=== PATIENT | male | born 1970 | race Two or more races ===

== ENCOUNTER → 2024-09-19 | Outpatient (CLI) | payer MEDICAID, SELFPAY ==
--- NOTE | 2024-09-19 | XR_ITS ---
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 FINDINGS: Total right hip arthroplasty with satisfactory alignment No loosening of the prosthetic components Advanced left hip osteoarthritis IMPRESSION: Total right hip arthroplasty with satisfactory alignment.
== END | disposition home or self-care (01) ==
LOC: CDIM 09:48
PROVIDERS: PCP Physician Assistant; Referring Provider Orthopaedic Surgery; Visit Provider Orthopaedic Surgery
DX: Z96.641 Presence of right artificial hip joint (principal)
CPT/HCPCS: 73502

== ENCOUNTER → 2025-03-12 | Outpatient (CLI) | payer MEDICAID, SELFPAY ==
--- NOTE | 2025-03-12 10:00 | XR_ITS ---
Examination: Transrectal prostate sonography TECHNIQUE: Grayscale transrectal sonographic images prostate Date and time: March 12, 2025, 0955 hours INDICATIONS: Loss of bladder control beginning 7 months ago, transrectal prostate sonography August 12, 2022 prostate volume 33 cc no prostate nodules FINDINGS: Prostate 4.6 x 3.5 x 5.5 cm volume 46 cc No prostate nodules IMPRESSION: Prostatomegaly, no prostate nodules
== END | disposition home or self-care (01) ==
PROVIDERS: PCP Physician Assistant; Referring Provider Physician Assistant; Visit Provider Physician Assistant
DX: N40.1 Benign prostatic hyperplasia with lower urinary tract symptoms (principal)
CPT/HCPCS: 76872

== ENCOUNTER 2025-05-17 08:00 | Day surgery (SDC) | payer MEDICAID, SELFPAY ==
--- NOTE | 2025-05-15 10:29 | EKG_ITS ---
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
[2025-05-15 12:16] VITALS: BMI 34.2
[2025-05-15 13:34] LABS: Basophils # (Auto) 0.0 Thou/mm3 (0.0-0.2); Basophils % (Auto) 0 % (0-2.5); Eosinophils # (Auto) 0.1 Thou/mm3 (0.0-0.5); Eosinophils % (Auto) 1 % (0-10); Hematocrit 46.1 % (41.0-53.0); Hemoglobin 15.6 g/dL (13.5-16.0); Immature Granulocytes Auto 0.02 Thou/mm3 (0.00-0.00); Lymphocytes # (Auto) 1.7 Thou/mm3 (1.0-4.8); Lymphocytes % (Auto) 21 % (10-50); Mean Corpuscular HGB Conc 33.8 g/dl (31.0-37.0); Mean Corpuscular Hemoglobin 31.1 pg (25.0-35.0); Mean Corpuscular Volume 92 fL (80-100); Monocytes # (Auto) 0.6 Thou/mm3 (0.0-0.8); Monocytes % (Auto) 8 % (0-12); Neutrophils # (Auto) 5.6 Thou/mm3 (1.8-7.7); Neutrophils % (Auto) 70 % (37-80); Nucleated Red Blood Cell # 0.00 Thou/mm3 (0.00-0.00); Nucleated Red Blood Cell % 0 /100 WBC (0); Platelet Count 181 Thou/mm3 (140-440); RDW Standard Deviation 43.0 fL (35.1-43.9); Red Blood Count 5.02 Miln/mm3 (4.50-5.90); White Blood Count 8.1 Thou/mm3 (3.8-10.6)
[2025-05-15 13:47] LABS: Alanine Aminotransferase 12 U/L (10-49); Albumin, Serum 4.7 gm/dL (3.5-5.0); Albumin/Globulin Ratio 1.7 (1.2-2.2); Alkaline Phosphatase 60 U/L (46-116); Anion Gap 8 (7-16); Aspartate Amino Transferase 14 U/L (0-34); BUN/Creatinine Ratio 19 Ratio (12-20); Bilirubin,Total 0.8 mg/dL (0.3-1.2); Blood Urea Nitrogen 21 mg/dL (9-23); Calcium 10.0 mg/dL (8.3-10.6); Calcium (Corrected) 10.0 mg/dL (8.5-10.1); Carbon Dioxide 31.1 mMol/L (20.0-31.0); Chloride 108 mMol/L (98-107); Creatinine (Component) 1.1 mg/dL (0.6-1.3); Estimated Creatinine Clearance 89.9 mL/min (>60); Globulin 2.7 gm/dL (2.3-3.5); Glucose 105 mg/dL (74-106); Osmolality,Calculated 295 (275-295); Potassium 4.1 mMol/L (3.4-5.1); Sodium 147 mMol/L (136-145); Total Protein 7.4 gm/dL (5.7-8.2); eGFR > 60 See Note
[2025-05-17] VITALS (10 sets, daily range): BP systolic 94–116; BP diastolic 54–69; PULSE 52–68; RESP 12–19; TEMP 36.2–36.6; O2SAT 94–100; BMI 33.4
[2025-05-17] MEDS: RINGERS LACTATED 1000 ML 1,000 ML 20 ML IV (08:47)
--- NOTE | 2025-05-17 11:21 | SUR.PHASEI ---
1121 Patient arrived to recovery resting comfortably in [facility], drowsy and able to arouse with verbal prompting, on oxygen 6L via oxy mask, breathing unlabored, vital signs stable, denies pain and nausea, dressing intact to upper groin, dermabond, gauze, medipore tape, no bleeding noted, report received from Janell PATEL and Nieves DIOR
--- NOTE | 2025-05-17 11:24 | ESOP_ITS ---
Date of Procedure 05/17/25 Pre Op Diagnosis Bilateral inguinal hernia Post Op Diagnosis Bilateral direct inguinal hernias Procedure Repair of bilateral inguinal hernias with mesh Findings Bilateral direct inguinal hernias Procedure Description Patient brought into the operating room in supine position. After administration of general endotracheal anesthesia, patient's bilateral groins were shaved, prepped and draped in standard surgical manner. The procedure started on the patient's right side. The right inguinal crease was anesthetized with half percent Marcaine. An approximately 8 cm incision was made and dissection was carried to subcutaneous tissue. The Muriel's fascia was divided and the external oblique aponeurosis was opened towards the external ring. The hernia sac and the spermatic cord structures were from the posterior aspect of the external oblique aponeurosis at the level of pubic tubercle. The hernia sac was then meticulously dissected off the spermatic cord structures at the level of internal ring. Patient was noted to have direct right inguinal hernia defect. The defect was closed with interrupted [id number] sutures using 0 Vicryl. The floor of inguinal canal was then reconstructed with ultra Pro proceed mesh. The mesh was secured with running 2-0 Prolene suture. The mesh secured medially to the pubic tubercle, superiorly into the conjoin tendon, inferiorly and to the shelving edge of inguinal ligament, the mesh was placed around the cord structures and tacked under the external oblique aponeurosis laterally. The area was copiously and thoroughly washed and irrigated, all the fluids were suctioned and the suction fluid returned clear. Hemostasis was adequate and satisfactory. External oblique aponeurosis was closed with running 2-0 Vicryl suture, and Muriel's fascia was closed with interrupted suture using 3-0 Vicryl. The incision was closed with 4-0 Monocryl in subcutaneous fashion. Dermabond and pressure sterile dressings applied. I then turned my attention to patient's left side. He was noted to have direct left inguinal hernia defect and the procedure was performed in exactly similar fashion. Instruments, needles and sponge counts were reported to be correct ?2. Patient tolerated the procedure well. He was extubated, breathing spontaneously and without difficulty and was transferred to postanesthesia care in stable condition. Anesthesia GETA and local Pathology / specimen None Estimated Blood Loss 20 Condition Stable Disposition PACU Surgeon Chau Najera MD Surgical Staff Operation Date: 05/17/25 10:15 Case Staff INFORMATION SECURITY ANALYST: Janell Ferguson RN First Assistant: Nirmala Humphries
--- NOTE | 2025-05-17 11:49 | SUR.PHASEI ---
pt awake, alert, able to follow commands, breathing unlabored, VS stable, dressing to lower abdomen clean, dry, and intact, pt tolerating ice chips without difficulty swallowing or n/v
[2025-05-17] MEDS: fentaNYL CIT INJ 50 mCg/ML AMP 2ML IVP (12:07)
--- NOTE | 2025-05-17 12:26 | SUR.PHASEII ---
pt awake, alert, able to follow commands, breathing unlabored, dressing to lower abdomen clean, dry, and intact, report to Sylwia Kincaid RN
--- NOTE | 2025-05-17 13:18 | SUR.PHASEII ---
1318 Patient meets discharge criteria from recovery, awake and alert, breathing unlabored, vital signs stable, per patient his pain is tolerable, dressing intact; no bleeding noted, patient voided in the restroom prior to discharge, assisted with dressing into his clothing by his , discharge instructions given to patient and patients , signed discharge instructions. Patient given all his belongings prior to discharge, transported via wheelchair and left in a private vehicle.
== END 2025-05-17 13:18 | disposition home or self-care (01) ==
PROVIDERS: Anesthesiology; PCP Physician Assistant; Referring Provider Surgery; Visit Provider Surgery
PROC: (CPT 49505; principal; 2025-05-17 10:00)
DX: K40.20 Bilateral inguinal hernia, without obstruction or gangrene, not specified as recurrent (principal); Z01.810 Encounter for preprocedural cardiovascular examination; E11.9 Type 2 diabetes mellitus without complications; E78.00 Pure hypercholesterolemia, unspecified; I10 Essential (primary) hypertension; Z79.899 Other long term (current) drug therapy; Z79.01 Long term (current) use of anticoagulants
CPT/HCPCS: 49505; 36415; 80053; 85025; 93005; A4217; A4649; C1781; J0131; J0690; J1100; J2371; J2405; J2704; J3010; J3490; J7120